=== PATIENT | female | born 1945 | race Asian ===

== ENCOUNTER 2022-09-10 10:27 | Outpatient (REF) | payer MEDICARE, MEDICAID, SELFPAY ==
--- NOTE | 2022-09-10 15:03 | MHC.AU.HA1 ---
Hearing Aid Evaluation Date of Visit: 09/10/22 Loans Officer Used: NA Historical Information: Description of Hearing: Hearing within normal limits in the right ear through 500 Hz sloping to a profound sensorineural hearing loss. In the left ear hearing is within normal limits at 250 Hz, sloping to a severe sensorineural hearing loss. Summary: Dex came in today for a hearing aid evaluation. Her hearing test was completed on 07/31/2022 by [facility]. She is transferring care to us due to having [facility]. Dex is not entirely sure about wearing hearing aids because she has not noticed any significant difficulties with her hearing, but she is happy to try them out since her insurance covers them. We briefly discussed the importance of wearing them regularly in order to get the best benefit as possible from the aids. She did not have any particular concerns or needs from her hearing aids and was happy to get a JOVITA style because she does not want anything bulky. She has an iPhone which was taken into account when deciding on the liquor rectifier. Ultimately we decided on a pair of Oticon Real 2 hearing aids in Chroma Beige with length 3 85 receivers. Dex was satisfied with this selection. She will be contacted to set up a fitting appointment once the aids arrive. Hearing Aid Prescription: Based on the individual?s shared listening needs, communication environments, dexterity, desire for connectivity, and personal preferences, the following prescription for amplification has been made: Right ear: Make, Model, Color: Oticon Real 2 miniRITE-R Chroma Beige Battery Size: Rechargeable Creative Perfumer/Slim Tube: 3 85 gain Type of Earmold/Dome/CShell/SlimTip: Open Left ear: Left ear prescription to be same as Right Hearing Aid above: Make, Model, Color: Oticon Real 2 miniRITE-R Chroma Beige Battery Size: Rechargeable Creative Perfumer/Slim Tube: 3 85 gain Type of Earmold/Dome/CShell/SlimTip: Open Plan of Care: Patient wishes to purchase hearing aids as prescribed Action Taken/Action Needed: Hearing Instrument Fitting to be scheduled when materials arrive Primary Diagnosis: H90.3 Bilateral Sensorineural Hearing Loss Signature: Student/Clinical Fellow: Yes: Lois Romo, HIS Billing Analyst I have reviewed/agreed with student/fellow documentation: Yes Provider: Rusty English, FAAA
== END 2022-09-10 10:28 | disposition home or self-care (01) ==
LOC: HO.HAP 10:27
PROVIDERS: Visit Provider Hospitalist
DX: Z46.1 Encounter for fitting and adjustment of hearing aid (principal); H90.3 Sensorineural hearing loss, bilateral
CPT/HCPCS: 92591

== ENCOUNTER 2022-11-18 12:54 | Outpatient (REF) | payer MEDICARE, MEDICAID, SELFPAY ==
--- NOTE | 2022-11-18 13:51 | MHC.AU.HA2 ---
Hearing Instrument Fitting- Adult- Binaural Date of Visit: 11/18/22 Hearing Instruments Dispensed: Right Ear: Make, Model, Color, Serial Number: Oticon Real 2 miniRITE-R SN: [id number] Color: Chroma Beige Truck Body Builder Apprentice Repair Warranty: 10/10/2025 Truck Body Builder Apprentice Loss and Damage Warranty: 10/10/2025 [facility] Service Plan: 11/19/2023 Battery Size: Rechargeable Ticketer/Slim Tube: 3/85 Earmold/Dome/CShell/SlimTip: 8mm double rock dome (no retention tail) Type of Wax Guard: miniFit ProWax Left Ear: Make, Model, Color, Serial Number: Oticon Real 2 miniRITE-R [id number] Color: Chroma Beige Truck Body Builder Apprentice Repair Warranty: 10/10/25 Truck Body Builder Apprentice Loss and Damage Warranty: 10/10/25 [facility] Service Plan: 11/19/2023 Battery Size: Rechargeable Ticketer/Slim Tube: 3/85 Earmold/Dome/CShell/SlimTip: 8mm double rock dome (no retention tail) Type of Wax Guard: miniFit ProWax Accessories/Assistive Technology: Commercial Sales Manager SN: [id number] Warranty: 10/10/2025 Summary of Fitting: Performed feedback analyzer and real ear measures. Comfortable at real ear settings. Discussed care, use, and rechargeability including manually turning on/off, volume control use, and changing domes and wax guards. Practiced insertion and removal. Dex was able to manipulate the hearing aids easily; however, she would not always fully insert. Instructed to ensure technical training coordinator is flush with head and there are no spaces between wire and ear. She did better with practice. Did not pair to cell phone at this time. Dex was also concerned that the hearing aids will exacerbate her tinnitus. Discussed possible effects of hearing aids on perception of tinnitus. As she was leaving, Dex reported a static sound in the left hearing aid with head movement - assuming it is hair rubbing over the microphones. Reexplained acclimatization period and importance of daily consistent use. The static noise seemed to lessen when she lowered the volume of the hearing aid. Will readdress at follow up if problem persists. Recommendations: A hearing instrument follow-up was scheduled - Dex is leaving Wednesday to travel out of the [place]. Follow up was scheduled for when she returned in about one month. Diagnosis Code(s): Primary Diagnosis: H90.3 Bilateral Sensorineural Hearing Loss Signature: Provider: Rusty Hendricks, [facility]
== END 2022-11-18 12:55 | disposition home or self-care (01) ==
LOC: HO.HAP 12:54
PROVIDERS: Visit Provider Otolaryngology
DX: Z46.1 Encounter for fitting and adjustment of hearing aid (principal); H90.3 Sensorineural hearing loss, bilateral
CPT/HCPCS: V5011; V5020; V5160; V5261

== ENCOUNTER 2023-01-26 08:23 | Outpatient (REF) | payer MEDICARE, MEDICAID, SELFPAY | END 2023-01-26 08:24 | disposition home or self-care (01) | LOC: HO.HAP 08:23 | PROVIDERS: PCP Hospitalist; Visit Provider Hospitalist | DX: Z13.89 Encounter for screening for other disorder (principal) ==

== ENCOUNTER 2023-09-30 09:18 | Outpatient (REF) | payer MEDICARE, MEDICAID, SELFPAY ==
--- NOTE | 2023-09-30 11:10 | MHC.AU.HA3 ---
Hearing Instrument Follow-Up- Binaural Date of Visit: 09/30/23 Right Ear: Make, Model, Color, Serial Number: Oticon Real 2 miniRITE-R SN: [id number] Color: Chroma Beige Wood Model Builder Repair Warranty: 10/10/2025 Wood Model Builder Loss and Damage Warranty: 10/10/2025 [facility] Service Plan: 11/19/2023 Battery Size: Rechargeable Bias Cutter Helper/Slim Tube: 3/85 Earmold/Dome/CShell/SlimTip:8mm double rock dome (no retention tail) Type of Wax Guard: miniFit ProWax Dispensed By: [facility] Date of Fittin11/18/2022 Left Ear: Make, Model, Color, Serial Number: Oticon Real 2 miniRITE-R [id number] Color: Chroma Beige Wood Model Builder Repair Warranty: 10/10/25 Wood Model Builder Loss and Damage Warranty: 10/10/25 [facility] Service Plan: 11/19/2023 Battery Size: Rechargeable Bias Cutter Helper/Slim Tube: 3/85 Earmold/Dome/CShell/SlimTip: 8mm double rock dome (no retention tail) Type of Wax Guard: miniFit ProWax Dispensed By: [facility] Date of Fittin11/18/2022 Follow-Up Summary: Reports left wasn't working, but is now. Cleaned and checked both aids, found wax in wax guards, debris in mics. Replaced wax guards and domes, vacuumed michael ports. Listening check positive after cleaning. Recommendations: Recommendations: Hearing instrument maintenance in 6 months, or sooner if needed. Diagnosis Code(s): Primary Diagnosis: H90.3 Bilateral Sensorineural Hearing Loss Signature: Provider: Rusty Lara, CCC-A
== END 2023-09-30 09:19 | disposition home or self-care (01) ==
LOC: HO.HAP 09:18
PROVIDERS: PCP Hospitalist; Visit Provider Otolaryngology
DX: Z13.89 Encounter for screening for other disorder (principal)

== ENCOUNTER 2023-09-30 09:36 | Outpatient (REF) | payer SELFPAY | END 2023-09-30 09:37 | disposition home or self-care (01) | LOC: HO.HAP 09:36 | PROVIDERS: Visit Provider Hospitalist | DX: Z46.1 Encounter for fitting and adjustment of hearing aid (principal) | CPT/HCPCS: V5267 ==